=== PATIENT | female | born 1960 ===

== ENCOUNTER 2017-03-05 21:02 | Emergency (ER) | payer OTHER ==
[2017-03-05 21:20] VITALS: TEMP 97.9
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
[2017-03-05 22:30] VITALS: BP 158/88; PULSE 71; RESP 18
[2017-03-06 02:19] VITALS: O2SAT 97
== END 2017-03-05 22:31 | disposition home or self-care (01) ==
LOC: C.ER 21:02
DX: S16.1XXA Strain of muscle, fascia and tendon at neck level, initial encounter (principal); V43.62XA Car passenger injured in collision with other type car in traffic accident, initial encounter; Y92.410 Unspecified street and highway as the place of occurrence of the external cause